=== PATIENT | male | born 2005 | race Hispanic/Latino ===

== ENCOUNTER 2024-07-30 20:18 | Emergency (ER) | payer SELFPAY ==
[~2024-07-30] VITALS: Ht 182.9 cm; Wt 83.9 kg
--- NOTE | 2024-07-30 20:32 | EKG ---
Formerly [facility] Test Date: 2024-07-30 Test Time: 20:29:30 Pat Name: MEGAN OLIVEIRA Department: [facility] Room: Gender: M Telesales Representative: 08 : 2005 Requested By: BARBRA LOCKWOOD Order Number: [id number] Reading MD: Jose Sanches Measurements Intervals [place] Rate: 78 P: 6 IA: 103 QRS: 70 QRSD: 113 T: 47 QT: 395 QTc: 452 Interpretive Statements Sinus rhythm Incomplete right bundle branch block No previous ECG available for comparison Electronically Signed On 07-31-2024 10:20:42 RHIC SYSTEMS SAFETY ENGINEER by Jose Sanches Please click the below link to view image of tracing.
--- NOTE | 2024-07-30 20:37 | ERN ---
ED Note History of Present Illness Stated Complaint: CHEST PAIN Chief Complaint: Chest Pain Time Seen by MD: 20:20 Dictation: PATIENT IS A 19-YEAR-OLD MALE COMING IN WITH HIS FATHER WITH COMPLAINTS OF BURNING PAIN TO HIS ANTERIOR CHEST HE HAS HAD SINCE LAST WEEK. NO JAW PAIN NO ARM PAIN NO BACK PAIN NO SOB. STATES HE WAS SEEN AT [facility] LAST WEEK FOR THE SAME COMPLAINT AND WAS DIAGNOSED WITH A ANXIETY. HE ALSO STATES HE HAS A HISTORY OF GASTRITIS AND TAKES MEDICATIONS FOR GASTRITIS HOWEVER NO ABDOMINAL PAIN AT THIS TIME. STATES HE HAS HAD OPEN HEART SURGERY BY DR. WORTHY IN THE PAST HOWEVER HAS NO PRIMARY CARE DOCTOR THE PRESENT TIME. Allergies: Coded Allergies: No Known Allergies (Unverified Allergy, Unknown, 07/30/24) Past Medical History Past Medical History: Heart Disease Surgical History: Other Surgical History Other: HEART SX WHEN YOUNGER (UNKNOWN PROCEDURE) RN Note Reviewed/Agreed w/PFSH: Yes Review of System Dictation CONSTITUTIONAL: NEGATIVE EXCEPT FOR HPI HEAD/FACE: NEGATIVE EXCEPT FOR HPI EENT: NEGATIVE EXCEPT FOR HPI RESPIRATORY: NEGATIVE EXCEPT FOR HPI CHEST PAIN/PRESSURE GASTROINTESTINAL/ABDOMINAL: NEGATIVE EXCEPT FOR HPI GENITOURINARY: NEGATIVE EXCEPT FOR HPI MUSCULOSKELETAL: NEGATIVE EXCEPT FOR HPI INTEGUMENTARY: NEGATIVE EXCEPT FOR HPI NEUROLOGICAL/PSYCH: NEGATIVE EXCEPT FOR HPI HEMATOLOGIC/LYMPHATIC: NEGATIVE EXCEPT FOR HPI ALL SYSTEMS NEGATIVE, EXCEPT NOTED ABOVE. 13 POINT REVIEW OF SYSTEMS ASSESSED AND ALL NEGATIVE EXCEPT FOR ABOVE. Initial Vital Sign VS Vital Signs Date Time Temp Pulse Resp B/P (MAP) Pulse Ox O2 Delivery O2 Flow Rate FiO2 07/30/24 20:26 98.2 90 20 158/113 99 Room Air 07/30/24 21:13 0 21 Physical Exam Dictation VITAL SIGNS REVIEWED GENERAL APPEARANCE: ALERT, ORIENTED X 3, NO ACUTE DISTRESS, WELL DEVELOPED, NOURISHED. OBESE HEAD AND FACE: NON-TRAUMATIC. EYES: PERRL, PINK CONJUNCTIVAS, EYELID NO TRAUMA, ANTERIOR CHAMBER WITH ARCUS SENILIS. EARS: PINNAS INTACT AND NO SIGNS OF TRAUMA OR ERYTHEMA EAR CANALS CLEAR AND NO DISCHARGE TM NO ERYTHEMA NOSE: NO DISCHARGE, NO BLEEDING. OROPHARYNX: MOUTH NORMAL, TONGUE PINK, PHARYNX CLEAR,NO ERYTHEMA, TONSILS NO EXUDATES, NO ABSCESSES NOTED, MUCOUS MEMBRANE MOIST NECK: SUPPLE, NON-TENDER, NO THYROMEGALY, NO MASSES, NO JVD, NO BRUITS BREAST:DEFERRED CHEST:NO TENDERNESS, NO CREPITUS, NO PARADOXICAL MOVEMENT, NO RETRACTIONS LUNGS:CLEAR, WELL-VENTILATED, SYMMETRIC, NO RALES, NO WHEEZING, NO RHONCHI, NO STRIDOR, GOOD BREATH SOUNDS BILATERALLY HEART: REGULAR RATE, REGULAR RHYTHM, NO MURMUR, NO GALLOPS VASCULAR: NO PERIPHERAL EDEMA, ABDOMEN: SOFT, POSITIVE BOWEL SOUNDS, NONDISTENDED, NO GUARDING, NONTENDER, NO REBOUND, NO MASSES NO HEPATOMEGALY, NO SPLENOMEGALY, NO BACK'S SIGN, NO HERNIAS. NO FOCAL TENDERNESS TO ABDOMEN RECTAL: DEFERRED GENITAL: DEFERRED NEUROLOGICAL: NORMAL SPEECH, MOTOR FUNCTION INTACT, SENSORY FUNCTION INTACT MUSCULOSKELETAL: NECK NONTENDER, FULL RANGE OF MOTION, BACK NONTENDER, FULL RANGE OF MOTION, EXTREMITIES: NONTENDER, FULL RANGE OF MOTION SKIN: COLOR PINK, DRY, NO TURGOR, NO RASH, NO LACERATIONS, NO ABRASIONS, NO CONTUSIONS. LYMPHATIC: DEFERRED Results (Laboratory/Radiology) Laboratory/Radiology Laboratory Tests Test 07/30/24 20:35 07/30/24 20:58 White Blood Count 8.3 K/uL (4.8-10.8) Red Blood Count 5.48 MIL/uL (4.50-6.20) Hemoglobin 15.6 g/dL (14.0-18.0) Hematocrit 45.8 % (42-54) Mean Corpuscular Volume 83.6 fL (80-100) Mean Corpuscular Hemoglobin 28.5 pg (27.0-33.0) Mean Corpuscular Hemoglobin Concent 34.1 g/dL (32.0-36.0) Red Cell Distribution Width 13.1 % (11.0-15.5) Platelet Count 281 K/uL (130-400) Mean Platelet Volume 10.2 fL (7.5-10.5) Immature Granulocyte % (Auto) 0.4 % (0-1) Neutrophils (%) (Auto) 67.4 % (40.0-77.0) Lymphocytes (%) (Auto) 24.3 % (21.0-51.0) Monocytes (%) (Auto) 7.3 % (3.0-13.0) Eosinophils (%) (Auto) 0.2 % (0.0-8.0) Basophils (%) (Auto) 0.4 % (0.0-5.0) Neutrophils # (Auto) 5.6 K/uL (1.8-7.7) Lymphocytes # (Auto) 2.0 K/uL (1.0-4.8) Monocytes # (Auto) 0.6 K/uL (0.1-1.0) Eosinophils # (Auto) 0.02 K/uL (0.00-0.70) Basophils # (Auto) 0.03 K/uL (0.00-0.20) Absolute Immature Granulocyte (auto 0.03 K/uL (0-1) Nucleated Red Blood Cells 0.0 % (0.0-0.19) Sodium Level 141 mmol/L (136-145) Potassium Level 3.6 mmol/L (3.5-5.1) Chloride Level 101 mmol/L (101-111) Carbon Dioxide Level 28 mmol/L (21-32) Blood Urea Nitrogen 10 mg/dL (7-18) Creatinine 1.1 mg/dL (0.5-1.3) Glomerular Filtration Rate Calc 99 mL/min (>90) Random Glucose 127 mg/dL (70-105) H Total Calcium 9.5 mg/dL (8.5-10.1) Troponin I High Sensitivity 11 ng/L (4-75) B-Type Natriuretic Peptide 8 pg/mL (0-100) Troponin I < 0.05 ng/mL (0.00-0.05) 07/28/2044 CHEST X-RAY NEGATIVE EKG Comment: EKG SINUS RHYTHM/HEART RATE 78/RIGHT BUNDLE BRANCH BLOCK/AXIS NORMAL ED Course ED Course Orders Procedure Category Date Status Time Vital Signs Per CPOE 07/30/24 Transmitted Routine 20:25 B-Type Natriuretic LAB 07/30/24 Complete Peptide 20:25 Chest 1vw RAD 07/30/24 Resulted 20:25 12 Lead Ekg Tracing- EKG 07/30/24 Complete Technical 20:25 Oxygen By Nc/Pulse Ox CPOE 07/30/24 Transmitted 20:25 Maintain Iv CPOE 07/30/24 Transmitted 20:25 Iv Insertion CPOE 07/30/24 Transmitted 20:25 Cardiac Monitoring CPOE 07/30/24 Transmitted 20:25 Pulse Oximetry With CPOE 07/30/24 Transmitted Vs And Prn 20:25 Cbc With Differential LAB 07/30/24 Complete 20:25 Troponin Poc Order LAB 07/30/24 Complete Only 20:25 Basic Metabolic Panel LAB 07/30/24 Complete 20:25 Troponin I High LAB 07/30/24 Complete Sensitivity 20:34 Lidocaine Hcl 2% PHA 07/30/24 Complete Viscous (Lidocaine Hcl 21:00 Mag/Alum/Simeth 30ml PHA 07/30/24 Complete (Maalox Plus 30ml) 21:00 Dicyclomine Hcl PHA 07/30/24 Complete (Bentyl 10mg/5ml 21:00 Ketorolac PHA 07/30/24 Complete Tromethamine 30mg/Ml 22:30 Methylprednisolone PHA 07/30/24 Complete Succ 125mg (Solu-Medr 22:30 Current Medications Medications (Trade) Dose Ordered Sig/Deric Route PRN Reason Start Time Stop Time Status Last Admin Dose Admin Al Hydroxide/Mg Hydroxide (MAALox PLUS 30ML) 30 ml ONCE ONCE PO 07/30/24 21:00 07/30/24 21:01 DC 07/30/24 21:06 Dicyclomine HCl (Bentyl 10mg/5ml Syrup) 10 mg ONCE ONCE PO 07/30/24 21:00 07/30/24 21:01 DC 07/30/24 21:06 Ketorolac Tromethamine (toRADol) 30 mg ONCE ONCE IVP 07/30/24 22:30 07/30/24 22:24 DC 07/30/24 22:11 Lidocaine HCl (Lidocaine HCl 2% Viscous) 10 ml ONCE ONCE PO 07/30/24 21:00 07/30/24 21:01 DC 07/30/24 21:06 Methylprednisolone Sodium Succinate (Solu-medROL 125MG) 125 mg ONCE ONCE IVP 07/30/24 22:30 07/30/24 22:24 DC 07/30/24 22:11 Vital Signs Date Time Temp Pulse Resp B/P (MAP) Pulse Ox O2 Delivery O2 Flow Rate FiO2 07/30/24 21:53 98.4 74 18 130/77 98 Room Air* 0 07/30/24 21:13 70 16 139/100 99 Room Air* 0 07/30/24 20:26 98.2 90 20 158/113 99 Room Air 2145 CARDIAC WORKUP COMPLETELY NEGATIVE CHEST X-RAY CLEAR. PATIENT DISCHARGED HOME WITH ATYPICAL CHEST PAIN INSTRUCTED TO CONTINUE THE MEDICATIONS FROM HIS VISIT TO [facility] LAST WEEK, WE WILL BE GIVEN THE NAME OF DR. KELLY AG TO FOLLOW UP IN THE NEXT SEVERAL DAYS. HEART Score Response (Comments) Value Risk Factors: 1-2 risk factors (+1) 1 Initial Troponin: Normal limit (0) 0 Total 1 Medical Decision Making MDM MDM: DIFFERENTIAL DIAGNOSIS: ACS/AMI/ELECTROLYTE IMBALANCE/DEHYDRATION/PNEUMONIA/BRONCHITIS/ANXIETY/GASTRITIS RATIONALE: TESTS CONSIDERED AND ORDERED SECONDARY TO SHARED DECISION MAKING INCLUDE: EKG/LABS/RADIOLOGY PREVIOUS OUTSIDE RECORDS REVIEWED: OLD ER VISITS. RISK OF COMPLICATION AND/OR MORBIDITY OR MORTALITY OF PATIENT MANAGEMENT: NONE MEDICATIONS-PER MEDICATION RECONCILIATION NEED FOR HOSPITALIZATION: PATIENT DOES NOT MEET CRITERIA FOR HOSPITALIZATION. NO NEED FOR EMERGENCY MAJOR/MINOR SURGERY: NO THERE ARE NO SOCIAL CONCERNS WITH THIS PATIENT. PRESCRIPTION DRUG MANAGEMENT NONE PRESCRIPTIONS WILL INCLUDE SYMPTOMATIC CARE PATIENT'S PRIOR EXTERNAL MEDICAL RECORDS FROM OTHER ER VISITS WERE REVIEWED BY ME INDICATED. PRIOR TESTING AND RESULTS FROM PREVIOUS VISITS WERE REVIEWED. PRIOR TESTS WERE TAKEN INTO ACCOUNT WITH MEDICAL DECISION MAKING AND RESOURCE UTILIZATION, INDEPENDENT HISTORIAN/HISTORIANS WERE USED TO OBTAIN COMPLETE MEDICAL HISTORY. I INDEPENDENTLY INTERPRETED THE TEST THAT WERE PERFORMED, RESULTS WERE REVIEWED BY ME AND CONSIDERED FINDINGS ON RADIOLOGY IF ORDERED. MEDICAL MANAGEMENT AND EXAMINATION INTERPRETATION DISCUSSIONS WERE HAD BY ME WITH OTHER QUALIFIED HEALTHCARE PROFESSIONALS INDICATED FOR THE PATIENT'S CARE. DX & DISP Disposition: Discharge Departure Impression: Primary Impression: Atypical chest pain Condition: Stable Additional Instructions: Follow-up with primary care provider in 1 to 2 days. Take medications as directed here in the emergency room. Okay to continue home medications unless otherwise discussed during your visit in the emergency room today. Return to your nearest emergency room if symptoms worsen or if there is no improvement. Call 911 if you need immediate assistance. Take Tylenol or Motrin bpol-[id number]-olk nter as needed and if no contraindications are present. Increase oral hydration. A wound culture or urine culture was ordered here in the emergency room department please follow-up with primary care provider and advise them to get repeat ports from our facility. If you had any Sanjay wrap/splints that were applied here, please do not remove them until you see your primary care or s pecialty. Continue all your medications from your visit to [facility] last week. Call Dr. Ag for an appointment in the next 1-2 days. Referrals: KELLY AG MD Time of Disposition: 21:47 I have reviewed the case, and I agree with, Diagnosis and Plan MESERET POLANCO NP Jul 30, 2024 20:37 BARBRA LOCKWOOD DO Jul 31, 2024 01:10
[2024-07-30 20:46] LABS: BASOPHILS # (AUTO) 0.03 K/uL (0.00-0.20); BASOPHILS % (AUTO) 0.4 % (0.0-5.0); EOSINOPHILS # (AUTO) 0.02 K/uL (0.00-0.70); EOSINOPHILS % (AUTO) 0.2 % (0.0-8.0); HEMATOCRIT 45.8 % (42-54); IMMATURE GRANULOCYTE ABSOLUTE 0.03 K/uL (0-1); LYMPHOCYTES % (AUTO) 24.3 % (21.0-51.0); MEAN CORPUSCULAR HEMOGLOBIN 28.5 pg (27.0-33.0); MEAN CORPUSCULAR HGB CONC 34.1 g/dL (32.0-36.0); MEAN CORPUSCULAR VOLUME 83.6 fL (80-100); MONOCYTES # (AUTO) 0.6 K/uL (0.1-1.0); MONOCYTES % (AUTO) 7.3 % (3.0-13.0); NEUTROPHILS # (AUTO) 5.6 K/uL (1.8-7.7); NEUTROPHILS % (AUTO) 67.4 % (40.0-77.0); PLATELET COUNT (AUTO) 281 K/uL (130-400); RED BLOOD CELL COUNT(AUTO) 5.48 MIL/uL (4.50-6.20); RED CELL DISTRIBUTION WIDTH 13.1 % (11.0-15.5); WHITE BLOOD COUNT (AUTO) 8.3 K/uL (4.8-10.8)
[2024-07-30 20:56] LABS: CREATININE 1.1 mg/dL (0.5-1.3); POTASSIUM 3.6 mmol/L (3.5-5.1)
[2024-07-30] MEDS: MAG/ALUM/SIMETH 30 ML UDCUP PO ONE (21:06)
[2024-07-30] MEDS: LIDOCAINE HCL 2% VISCOUS 15 ML UDCUP PO ONE (21:06)
[2024-07-30] MEDS: DICYCLOMINE HCL 10 MG/5 ML ML PO ONE (21:06)
[2024-07-30 21:15] LABS: B-TYPE NATRIURETIC PEPTIDE 8 pg/mL (0-100)
--- NOTE | 2024-07-30 21:52 | NUR ---
[facility] AND FAMILY AT BEDSIDE.
[2024-07-30 21:53] VITALS: BP 130/77; PULSE 74; RESP 18; TEMP 98.4; O2SAT 98
[2024-07-30] MEDS: Solu-medROL 125MG VIAL IVP ONE (22:11)
[2024-07-30] MEDS: ketOROlac 30MG VIAL (30MG/ML) IVP ONE (22:11)
--- NOTE | 2024-07-30 22:37 | HMCIMG ---
CHEST 1VW HISTORY: Chest pain COMPARISON: None FINDINGS: A frontal projection of the chest was obtained. No acute pulmonary infiltrates is seen. The heart is normal in size. Prominent interstitial markings are seen. No evidence of aortic calcification is seen. IMPRESSION: 1. No acute pulmonary infiltrate is seen.
== END 2024-07-30 22:24 | disposition home or self-care (01) ==
LOC: EDH 20:18
DX: R07.89 Other chest pain (principal); I51.9 Heart disease, unspecified; Z98.890 Other specified postprocedural states
CPT/HCPCS: 99285; 96374; 71045; 96375; 84484 ×2; 80048; 83880; 85025; 36415; 93005; J1885; J2919

== ENCOUNTER 2024-09-20 20:50 | Emergency (ER) | payer SELFPAY ==
[~2024-09-20] VITALS: Ht 182.9 cm; Wt 77.1 kg
[2024-09-20 21:06] VITALS: BP 138/92; PULSE 87; RESP 16; TEMP 98.6; O2SAT 97
--- NOTE | 2024-09-20 21:17 | EKG ---
[facility] Test Date: 2024-09-20 Test Time: 21:14:25 Pat Name: MEGAN OLIVEIRA Department: [facility] Room: Gender: M Automatic Clipper: [id number] : 2005 Requested By: PATRICK PAYTON Order Number: [id number] Reading MD: Timmy Martinez Measurements Intervals [place] Rate: 78 P: 12 DC: 125 QRS: 56 QRSD: 99 T: 48 QT: 363 QTc: 415 Interpretive Statements Sinus arrhythmia ST elev, probable normal early repol pattern Compared to ECG 07/30/2024 20:29:30 ST (T wave) deviation now present Sinus rhythm no longer present Incomplete right bundle-branch block no longer present Electronically Signed On 09-21-2024 19:32:07 CDT by Timmy Martinez Please click the below link to view image of tracing.
[2024-09-20 21:32] LABS: BASOPHILS # (AUTO) 0.03 K/uL (0.00-0.20); BASOPHILS % (AUTO) 0.3 % (0.0-5.0); EOSINOPHILS # (AUTO) 0.06 K/uL (0.00-0.70); EOSINOPHILS % (AUTO) 0.7 % (0.0-8.0); HEMATOCRIT 44.4 % (42-54); IMMATURE GRANULOCYTE ABSOLUTE 0.03 K/uL (0-1); LYMPHOCYTES # (AUTO) 2.3 K/uL (1.0-4.8); LYMPHOCYTES % (AUTO) 25.1 % (21.0-51.0); MEAN CORPUSCULAR HEMOGLOBIN 28.3 pg (27.0-33.0); MEAN CORPUSCULAR HGB CONC 33.6 g/dL (32.0-36.0); MEAN CORPUSCULAR VOLUME 84.4 fL (80-100); MONOCYTES # (AUTO) 0.6 K/uL (0.1-1.0); MONOCYTES % (AUTO) 6.8 % (3.0-13.0); NEUTROPHILS # (AUTO) 6.1 K/uL (1.8-7.7); NEUTROPHILS % (AUTO) 66.8 % (40.0-77.0); PLATELET COUNT (AUTO) 274 K/uL (130-400); RED BLOOD CELL COUNT(AUTO) 5.26 MIL/uL (4.50-6.20); RED CELL DISTRIBUTION WIDTH 13.2 % (11.0-15.5); WHITE BLOOD COUNT (AUTO) 9.1 K/uL (4.8-10.8)
[2024-09-20] MEDS: 0.9%NACL 1000ML 1,000 ML IV ONE (21:34)
[2024-09-20] MEDS: PANTOPrazole 40 MG/VIAL IVP ONE (21:34)
[2024-09-20] MEDS: morPHINE 4 MG SYG IVP ONE (21:34)
[2024-09-20] MEDS: ondanSETRON 4MG INJ IVP ONE (21:34)
[2024-09-20 21:43] LABS: POTASSIUM 3.5 mmol/L (3.5-5.1)
[2024-09-20 21:52] LABS: ALBUMIN 4.5 g/dL (3.5-5.0); BILIRUBIN,DIRECT 0.2 mg/dL (0.0-0.3); BILIRUBIN,TOTAL 0.9 mg/dL (0.2-1.0); TOTAL PROTEIN, SERUM 7.8 g/dL (6.0-8.3)
[2024-09-20 21:53] LABS: APPEARANCE,URINE CLEAR (CLEAR); BILIRUBIN,URINE NEGATIVE (NEGATIVE); COLOR,URINE LIGHT-YELLOW (YELLOW); GLUCOSE, URINE (UA) NEGATIVE (NEGATIVE); KETONES,URINE 20 mg/dL (NEGATIVE); LEUKOCYTE ESTERASE ,URINE NEGATIVE Leu/uL (NEGATIVE); NITRATE,URINE NEGATIVE (NEGATIVE); PH,URINE 5.5 (5.0-8.0); PROTEIN,URINE NEGATIVE (NEGATIVE); UROBILINOGEN,URINE 0.2 mg/dL (0.2-1.0)
[2024-09-20 21:59] LABS: ADD UA MICROSCOPIC YES
[2024-09-20 22:01] LABS: MUCUS,URINE RARE LPF (None Seen); RBC,URINE 0-1 /HPF (0-1)
[2024-09-20] MEDS ORDERED: MAG-37 PO (22:54)
--- NOTE | 2024-09-20 22:54 | ERN ---
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 Patient denies any nausea or vomiting. Denies any diarrhea or constipation. Denies any fevers. Allergies: Coded Allergies: No Known Allergies (Unverified Allergy, Unknown, 07/30/24) Penicillins (Unverified Allergy, Unknown, 09/20/24) Past Medical History Past Medical History: Heart Disease Surgical History: Other Surgical History Other: HEART SX WHEN YOUNGER , TRILOGY OF FALLOT RN Note Reviewed/Agreed w/PFSH: Yes Review of System Dictation Constitutional: Negative for fever,chills, and weight loss Eyes: Negative for injury, pain,redness, and discharge ENT: Negative for injury,pain or swelling Cardiovascular: Negative for chest pain, palpitations, and edema Respiratory: Negative for shortness of breath, cough, and wheezing, Abdomen/GI: Negative for nausea, vomiting, diarrhea, and constipation positive for abdominal pain, Back: Negative for injury and pain : Negative for injury, bleeding and discharge MS/Extremity: Negative for injury and deformity Skin: Negative for rash, and discoloration Neuro: Negative for headache, weakness, numbness, tingling, and seizure Psych: Negative for suicide ideation, homicidal ideation, and hallucinations Initial Vital Sign VS Vital Signs Date Time Temp Pulse Resp B/P (MAP) Pulse Ox O2 Delivery O2 Flow Rate FiO2 09/20/24 20:51 98.6 87 16 138/92 97 Room Air 09/20/24 21:06 0 21 Physical Exam Dictation Vital Signs reviewed General Appearance: Alert, oriented x 3, no acute distress, well developed, nourished. Head and Face: non-traumatic. Eyes: PERRL, pink conjunctivas, eyelid no trauma, anterior chamber with arcus senilis. Ears: Pinnas intact and no signs of trauma or erythema ear canals clear and no discharge TM no erythema Nose: No discharge, no bleeding. Oropharynx: Mouth normal, tongue pink. pharynx clear,no erythema, tonsils no exudates, no abscesses noted, mucous membrane moist Neck: Supple, non-tender, no thyromegaly, no masses, no JVD, no bruits Breast:Deferred Chest:No tenderness, no crepitus, no paradoxical movement, no retractions Lungs:Clear, well-ventilated, symmetric, no rales, no wheezing, no rhonchi, no stridor, good breath sounds bilaterally Heart: Regular rate, regular rhythm, no murmur, no gallops Vascular: no peripheral edema, Abdomen: Soft, positive bowel sounds, nondistended, no guarding, nontender, no rebound, no masses no hepatomegaly, no splenomegaly, no Allan's sign, no hernias. Rectal: Deferred Genital: Deferred Neurological: Normal speech, motor function intact, sensory function intact Musculoskeletal: Neck nontender, full range of motion, back nontender, full range of motion, Extremities: nontender, full range of motion Skin: Color pink, dry, no turgor, no rash, no lacerations, no abrasions, no contusions. Lymphatic: Deferred Results (Laboratory/Radiology) Laboratory/Radiology Laboratory Tests Test 09/20/24 21:20 09/20/24 21:42 White Blood Count 9.1 K/uL (4.8-10.8) Red Blood Count 5.26 MIL/uL (4.50-6.20) Hemoglobin 14.9 g/dL (14.0-18.0) Hematocrit 44.4 % (42-54) Mean Corpuscular Volume 84.4 fL (80-100) Mean Corpuscular Hemoglobin 28.3 pg (27.0-33.0) Mean Corpuscular Hemoglobin Concent 33.6 g/dL (32.0-36.0) Red Cell Distribution Width 13.2 % (11.0-15.5) Platelet Count 274 K/uL (130-400) Mean Platelet Volume 9.8 fL (7.5-10.5) Immature Granulocyte % (Auto) 0.3 % (0-1) Neutrophils (%) (Auto) 66.8 % (40.0-77.0) Lymphocytes (%) (Auto) 25.1 % (21.0-51.0) Monocytes (%) (Auto) 6.8 % (3.0-13.0) Eosinophils (%) (Auto) 0.7 % (0.0-8.0) Basophils (%) (Auto) 0.3 % (0.0-5.0) Neutrophils # (Auto) 6.1 K/uL (1.8-7.7) Lymphocytes # (Auto) 2.3 K/uL (1.0-4.8) Monocytes # (Auto) 0.6 K/uL (0.1-1.0) Eosinophils # (Auto) 0.06 K/uL (0.00-0.70) Basophils # (Auto) 0.03 K/uL (0.00-0.20) Absolute Immature Granulocyte (auto 0.03 K/uL (0-1) Nucleated Red Blood Cells 0.0 % (0.0-0.19) Sodium Level 139 mmol/L (136-145) Potassium Level 3.5 mmol/L (3.5-5.1) Chloride Level 102 mmol/L (101-111) Carbon Dioxide Level 28 mmol/L (21-32) Blood Urea Nitrogen 16 mg/dL (7-18) Creatinine 1.0 mg/dL (0.5-1.3) Glomerular Filtration Rate Calc 111 mL/min (>90) Random Glucose 89 mg/dL (70-105) Total Calcium 9.6 mg/dL (8.5-10.1) Total Bilirubin 0.9 mg/dL (0.2-1.0) Direct Bilirubin 0.2 mg/dL (0.0-0.3) Aspartate Amino Transf (AST/SGOT) 18 U/L (10-37) Alanine Aminotransferase (ALT/SGPT) 24 U/L (12-78) Alkaline Phosphatase 96 U/L (50-136) Troponin I High Sensitivity 9 ng/L (4-75) Total Protein 7.8 g/dL (6.0-8.3) Albumin 4.5 g/dL (3.5-5.0) Lipase 54 U/L (16-77) Urine Color LIGHT-YELLOW (YELLOW) Urine Appearance CLEAR (CLEAR) Urine pH 5.5 (5.0-8.0) Urine Specific [place] 1.023 (1.001-1.031) Urine Protein NEGATIVE mg/dL (NEGATIVE) Urine Glucose (UA) NEGATIVE mg/dL (NEGATIVE) Urine Ketones 20 mg/dL (NEGATIVE) H Urine Occult Blood +- (TRACE) (NEGATIVE) H Urine Nitrate NEGATIVE (NEGATIVE) Urine Bilirubin NEGATIVE mg/dL (NEGATIVE) Urine Urobilinogen 0.2 mg/dL (0.2-1.0) Urine Leukocyte Esterase NEGATIVE Mitra/uL Urine RBC 0-1 /HPF (0-1) Urine WBC 2-5 /HPF (0-1) H Urine Bacteria None /HPF (None Seen) Labs Reviewed?: Yes EKG: (+) rhythm (Sinus arrhythmia) EKG Comment: Date:09/20/2024 Time:2113 Ventricular rate:78 NC interval:125 QRS duration:99 QT/QTc:363 EKG interpretation: Sinus arrhythmia early repolarization Reviewed by ED Attending no STEMI ED Course ED Course Orders Procedure Category Date Status Time Cbc With Differential LAB 09/20/24 Complete 21: Troponin I High LAB 09/20/24 Complete Sensitivity 21:06 Urinalysis Profile LAB 09/20/24 Complete 21:06 12 Lead Ekg Tracing- EKG 09/20/24 Complete Technical 21:06 0.9%Nacl 1000ml (Ns PHA 09/20/24 Complete 1000ml) 21:30 Morphine 4mg Syg PHA 09/20/24 Complete (Morphine 4mg Syg) 21:30 Ondansetron 4mg Inj PHA 09/20/24 Complete (Zofran 4mg Inj) 21:30 Pantoprazole 40mg Inj PHA 09/20/24 Complete (Protonix 40mg Inj 21:30 Lipase LAB 09/20/24 Complete 21:06 Basic Metabolic Panel LAB 09/20/24 Complete 21:06 Hepatic Function Panel LAB 09/20/24 Complete 21:06 Current Medications Medications (Trade) Dose Ordered Sig/Deric Route PRN Reason Start Time Stop Time Status Last Admin Dose Admin Morphine Sulfate (morPHINE 4MG SYG) 4 mg ONCE ONCE IVP 09/20/24 21:30 09/20/24 21:31 DC 09/20/24 21:34 Ondansetron HCl (zoFRAN 4MG INJ) 4 mg ONCE ONCE IVP 09/20/24 21:30 09/20/24 21:31 DC 09/20/24 21:34 Pantoprazole Sodium (PROTonix 40MG INJ) 40 mg ONCE ONCE IVP 09/20/24 21:30 09/20/24 21:31 DC 09/20/24 21:34 Sodium Chloride 1,000 ml @ 0 mls/hr ONCE ONCE IV 09/20/24 21:30 09/20/24 21:31 DC 09/20/24 21:34 Vital Signs Date Time Temp Pulse Resp B/P (MAP) Pulse Ox O2 Delivery O2 Flow Rate FiO2 09/20/24 21:06 98.6 87 16 138/92 97 Room Air* 0 21 09/20/24 20:51 98.6 87 16 138/92 97 Room Air Medical Decision Making MDM The patient is a 19-year-old male with past medical history of 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 Patient denies any nausea or vomiting. Denies any diarrhea or constipation. Denies any fevers. CBC showed no leukocytosis, no anemia, chemistry showed no electrolyte imbalance, negative troponin, negative lipase, normal liver enzymes. Urinalysis unremarkable. Patient reports improvement in pain. Denies any more pain. Patient's symptoms probably related to gastritis. Patient no acute distress. Soft and Nontender abdomen Labs reviewed with the patient who agrees to be discharged and follow up with primary doctor. Differential diagnosis: Gastritis, gastroenteritis, dehydration, ACS Need for hospitalization: Patient does not meet criteria for hospitalization. There are no social concerns with this patient. DX & DISP Disposition: Discharge Departure Impression: Primary Impression: Gastritis Condition: Stable Scripts Mag Hydrox/Aluminum Hyd/Simeth (Maalox Advanced Suspension) 200 Mg-200 Mg-20 Mg/5 Ml Oral.susp 20 ML PO Q8H for 14 Days, #840 ML 0 Refills Prov: PATRICK PAYTON SWEEPER OPERATOR [employer] 09/20/24 Additional Instructions: Please follow up with your primary doctor in 1-2 days. If symptoms worsen please return to ER. FOLLOW-UP WITH PRIMARY CARE PROVIDER IN 1 TO 2 DAYS. TAKE MEDICATIONS DIRECTED HERE IN THE EMERGENCY ROOM. OKAY TO CONTINUE HOME MEDICATIONS UNLESS OTHERWISE DISCUSSED DURING YOUR VISIT IN THE EMERGENCY ROOM TODAY. RETURN TO YOUR NEAREST EMERGENCY ROOM IF SYMPTOMS WORSEN OR IF THERE IS NO IMPROVEMENT. CALL 911 IF YOU NEED IMMEDIATE ASSISTANCE. TAKE TYLENOL OR MOTRIN [id number] NEEDED AND IF NO CONTRAINDICATIONS ARE PRESENT. INCREASE ORAL HYDRATION. A WOUND CULTURE OR URINE CULTURE WAS ORDERED HERE IN THE EMERGENCY ROOM DEPARTMENT PLEASE FOLLOW-UP WITH PRIMARY CARE PROVIDER AND ADVISE THEM TO GET REPEAT PORTS FROM OUR FACILITY. IF YOU HAD ANY EUGENE WRAP/SPLINTS THAT WERE APPLIED HERE, PLEASE DO NOT REMOVE THEM UNTIL YOU SEE YOUR PRIMARY CARE OR SPECIALTY. Referrals: SELF,REFERRAL (PCP) Time of Disposition: 22:52 I have reviewed the case, and I agree with, Diagnosis and Plan PATRICK PAYTON [employer]EE[employer] Sep 20, 2024 22:54
== END 2024-09-20 22:55 | disposition home or self-care (01) ==
LOC: EDH 20:50
DX: K29.70 Gastritis, unspecified, without bleeding (principal); Z88.0 Allergy status to penicillin; Z98.890 Other specified postprocedural states
CPT/HCPCS: 99284; 96374; 96375; 80076; 84484; 80048; 83690; 85025; 81001; 36415; 93005; J7030; J2405; J2270; J2470

== ENCOUNTER 2024-10-04 03:34 | Emergency (ER) | payer SELFPAY ==
[~2024-10-04] VITALS: Ht 182.9 cm; Wt 72.6 kg
[~2024-10-04 03:34] MED LIST: MAG-37 PO
--- NOTE | 2024-10-04 04:10 | ERN ---
General Chief Complaint: Abdominal Pain Stated Complaint: ABD PAIN Time Seen by MD: 03:59 Source: patient History of Present Illness Initial Comments Patient woken from sleep because his belly was all squirelly and he could not fall back asleep. He can not find a better word to describe how his stomach feels beyond hyper hypermotil and squirelly. He tried walking and that did not help and so he comes to the ED. Really no other symptoms the pain in his abdomen no dyspepsia no vomiting no nausea no difficulty with passing gas or having bowel movements. Allergies: Coded Allergies: No Known Allergies (Unverified Allergy, Unknown, 07/30/24) Penicillins (Unverified Allergy, Unknown, 09/20/24) Home Meds Active Scripts Mag Hydrox/Aluminum Hyd/Simeth (Maalox Advanced Suspension) 200 Mg-200 Mg-20 Mg/5 Ml Oral.susp, 20 ML PO Q8H for 14 Days, #840 ML 0 Refills Prov:PAYTONPATRICK ELLIOTT [employer] 09/20/24 Past Medical History Past Medical History: Heart Disease Past Surgical History: Other Surgical History Other: HEART SX WHEN YOUNGER , TRILOGY OF FALLOT ROS Dictation Review of systems is otherwise negative. No change in patient's mental status no headaches no lightheadedness no visual disturbances no rhinorrhea no coughing no sneezing no abdominal pain no diarrhea no shortness of breath no cardiac symptoms or chest pain moves all extremities no numbness or tingling. Physical Exam General Appearance: (+) apparent distress Orientation: (+) oriented x 3 Eye: bilateral eye normal inspection, bilateral eye PERRL, bilateral eye EOMI Ear, Nose, Throat: (+) hearing grossly normal, (+) normal ENT inspection, (+) moist mucous membraine Neck: (+) normal inspection, (+) supple Respiratory: (+) chest non-tender, (+) lungs clear Heart: (+) regular Vascular: (+) no edema, (+) normal peripheral pulse Gastrointestinal: (+) soft, (+) non-tender, (+) no organomegaly, (+) bowel sound present Extremities: (+) normal range of motion, (+) non-tender, (+) normal inspection, (+) no pedal edema, (+) no calf tenderness Neurologic/Psychiatric: (+) normal speech Results Laboratory and Microbiology Lab and Micro Result Laboratory Tests Test 10/04/24 04:30 White Blood Count 9.7 K/uL (4.8-10.8) Red Blood Count 5.42 MIL/uL (4.50-6.20) Hemoglobin 15.4 g/dL (14.0-18.0) Hematocrit 46.0 % (42-54) Mean Corpuscular Volume 84.9 fL (80-100) Mean Corpuscular Hemoglobin 28.4 pg (27.0-33.0) Mean Corpuscular Hemoglobin Concent 33.5 g/dL (32.0-36.0) Red Cell Distribution Width 13.1 % (11.0-15.5) Platelet Count 284 K/uL (130-400) Mean Platelet Volume 10.2 fL (7.5-10.5) Segmented Neutrophils % 87 % (40-70) H Band Neutrophils % 1 % (0-2) Lymphocytes % (Manual) 11 % (22-44) L Basophils % (Manual) 1 % (0-2) Nucleated Red Blood Cells 0.0 % (0.0-0.19) Differential Comment MANUAL DIFFERENTIAL White Cell Morphology Comment Platelet Morphology Comment See comments Red Blood Cell Morphology ANISO 1+ Sodium Level 139 mmol/L (136-145) Potassium Level 3.9 mmol/L (3.5-5.1) Chloride Level 103 mmol/L (101-111) Carbon Dioxide Level 29 mmol/L (21-32) Blood Urea Nitrogen 14 mg/dL (7-18) Creatinine 1.0 mg/dL (0.5-1.3) Glomerular Filtration Rate Calc 111 mL/min (>90) Random Glucose 149 mg/dL (70-105) H Total Calcium 9.5 mg/dL (8.5-10.1) MDM Chief complaint of having a squirally belly is not want to have heard before. His abdomen maybe hyper motile. Maybe the beginning of a gastroenteritis. He does not have any surgical scars on his abdomen all of his surgeries have been in his thorax. I will start the treatment with a simple KUB upright and a GI cocktail. We do CBC and chemistry as well. KUB from the patient is normal the GI cocktail did settle his stomach well and he feels better and feels okay to go home. Patient's white count and chemistry panel were normal. ED Course Orders Procedure Category Date Status Time Lidocaine Hcl 2% PHA 10/04/24 Complete Viscous (Lidocaine Hcl 04:30 Mag/Alum/Simeth 30ml PHA 10/04/24 Complete (Maalox Plus 30ml) 04:30 Dicyclomine Hcl PHA 10/04/24 Complete (Bentyl 10mg/5ml 04:30 Abd 1vw RAD 10/04/24 Taken 04:02 Cbc W Manual Diff LAB 10/04/24 Complete 04:09 Basic Metabolic Panel LAB 10/04/24 Complete 04:09 Current Medications Medications (Trade) Dose Ordered Sig/Deric Route PRN Reason Start Time Stop Time Status Last Admin Dose Admin Al Hydroxide/Mg Hydroxide (MAALox PLUS 30ML) 30 ml ONCE ONCE PO 10/04/24 04:30 10/04/24 04:31 DC 10/04/24 04:22 Dicyclomine HCl (Bentyl 10mg/5ml Syrup) 10 mg ONCE ONCE PO 10/04/24 04:30 10/04/24 04:31 DC 10/04/24 04:22 Lidocaine HCl (Lidocaine HCl 2% Viscous) 10 ml ONCE ONCE PO 10/04/24 04:30 10/04/24 04:31 DC 10/04/24 04:23 Vital Signs Date Time Temp Pulse Resp B/P (MAP) Pulse Ox O2 Delivery O2 Flow Rate FiO2 10/04/24 03:36 97.0 88 20 132/85 99 Room Air DX & DISP Disposition: Discharge Departure Impression: Primary Impression: Gastritis Condition: Stable Additional Instructions: Follow with networks computer consultant if this condition happens again maybe there are medications to calm the overactive stomach. Referrals: SELF,REFERRAL (PCP) ABEBA SPENCE MD Oct 04, 2024 04:10
[2024-10-04] MEDS: MAG/ALUM/SIMETH 30 ML UDCUP PO ONE (04:22)
[2024-10-04] MEDS: DICYCLOMINE HCL 10 MG/5 ML ML PO ONE (04:22)
[2024-10-04] MEDS: LIDOCAINE HCL 2% VISCOUS 15 ML UDCUP PO ONE (04:23)
[2024-10-04 04:50] LABS: MEAN CORPUSCULAR HEMOGLOBIN 28.4 pg (27.0-33.0); MEAN CORPUSCULAR HGB CONC 33.5 g/dL (32.0-36.0); MEAN CORPUSCULAR VOLUME 84.9 fL (80-100); PLATELET COUNT (AUTO) 284 K/uL (130-400); RED BLOOD CELL COUNT(AUTO) 5.42 MIL/uL (4.50-6.20); RED CELL DISTRIBUTION WIDTH 13.1 % (11.0-15.5); WHITE BLOOD COUNT (AUTO) 9.7 K/uL (4.8-10.8)
[2024-10-04 04:59] LABS: POTASSIUM 3.9 mmol/L (3.5-5.1)
[2024-10-04 05:27] LABS: BAND NEUTROPHILS % (MANUAL) 1 % (0-2); BASOPHILS % (MANUAL) 1 % (0-2); LYMPHOCYTES % (MANUAL) 11 % (22-44); SEGMENTED NEUTROPHILS % 87 % (40-70); TOTAL CELLS COUNTED 100
[2024-10-04 05:33] LABS: MAN.DIFF COMMENT-IMPRESSION MANUAL DIFFERENTIAL
[2024-10-04 07:22] VITALS: BP 128/83; PULSE 85; RESP 18; TEMP 98; O2SAT 99
--- NOTE | 2024-10-04 10:15 | HMCIMG ---
ABD 1VW HISTORY: pain TECHNIQUE: ABD 1VW. COMPARISON: None. FINDINGS AND IMPRESSION: Nonspecific bowel gas pattern is seen. Prominent fecal material in the colon suggesting mild constipation. No definite evidence of free abdominal air. No acute osseous injury is identified.
== END 2024-10-04 07:23 | disposition home or self-care (01) ==
LOC: EDH 03:34
DX: K29.70 Gastritis, unspecified, without bleeding (principal); Z88.0 Allergy status to penicillin; Z98.890 Other specified postprocedural states
CPT/HCPCS: 36415; 74018; 80048; 85025; 99284